=== PATIENT | male | born 1970 | race Caucasian/White ===

== ENCOUNTER 2022-08-29 15:44 | Emergency (ER) | payer OTHER, SELFPAY ==
--- NOTE | ~2022-08-29 | CT_ITS ---
EXAMINATION: CT head/brain wo IV con CLINICAL INFORMATION: Reason for Exam facial numbness, weakness, asymmetry COMPARISON: None. TECHNIQUE: Contiguous axial imaging was performed from the skull base to vertex without intravenous contrast. Sagittal and coronal reformatted images were obtained. This CT examination was performed using dose optimization techniques as appropriate, variously including the following: * Automated exposure control * Adjustment of mA and/or kV according to patient size (this includes techniques or standardized protocols for targeted exams where dose is matched to indication/reason for exam; i.e. extremities or head) Use of iterative reconstruction technique DLP: 709 mGy-cm FINDINGS: No acute osseous or soft tissue abnormality. The mastoid air cells and visualized portions of the paranasal sinuses are well aerated. There is no evidence of acute intracranial hemorrhage or territorial infarction. No abnormal mass effect or midline shift is seen. Justin to white matter differentiation is well preserved. No extra-axial fluid collections are identified. Cavum septum pellucidum et vergae. No hydrocephalus. No significant volume loss. There is no abnormal attenuation within the brain parenchyma. CT/CT head/brain wo IV con IMPRESSION: No acute intracranial abnormality including hemorrhage, mass effect, hydrocephalus, or acute territorial edematous infarction.
[2022-08-29 15:48] VITALS: BP 145/77; PULSE 90; RESP 20; TEMP 37.1; O2SAT 96; BMI 36.1
--- NOTE | 2022-08-29 15:54 | ECG_ITS ---
Test Reason : NUMBNESS Blood Pressure : / mmHG Vent. Rate : 087 BPM Atrial Rate : 087 BPM P-R Int : 148 ms QRS Dur : 082 ms QT Int : 340 ms P-R-T Axes : 056 033 019 degrees QTc Int : 409 ms Normal sinus rhythm ST & T wave abnormality, consider inferior ischemia Abnormal ECG No previous ECGs available Referred By: Generic ED Physician Electronically Signed By:JEROD DUBON
[2022-08-29 16:12] LABS: MANUAL DIFF FLAG NO
[2022-08-29 16:15] LABS: Basophils Percent Auto 0.4 % (0-2); Eosinophils Absolute Auto 0.1 X10*3/uL (0.0-0.4); Eosinophils Percent Auto 0.5 % (0-4); Imm Gran Abs Auto 0.02 X10*3/uL (0.00-0.03); Imm Gran Pct Auto 0.2 % (0.0-0.4); Lymphocytes Absolute Auto 3.2 X10*3/uL (1.2-4.9); Lymphocytes Percent Auto 31.7 % (20-40); Mean Corpuscular HGB Conc 37.5 g/dl (31.0-36.0); Mean Corpuscular Hemoglobin 29.4 pg (27.0-33.0); Mean Corpuscular Volume 78.3 fL (80.0-98.0); Mean Platelet Volume 10.5 fL (9.4-12.4); Monocytes Absolute Auto 0.7 X10*3/uL (0.1-1.2); Monocytes Percent Auto 6.9 % (2-11); Neutrophils Absolute Auto 6.2 x10*3/uL (2.0-8.3); Neutrophils Percent Auto 60.3 % (45-73); Platelet Count 263 X10*3/uL (160-400); Red Blood Count 5.11 X10*6/uL (4.60-5.80); Red Cell Distribution Width 12.9 % (11.0-16.0); White Blood Count 10.2 X10*3/uL (4.8-10.8)
[2022-08-29 16:28] LABS: Anion Gap 15 (12-20); Blood Urea Nitrogen 10 mg/dL (9-16); Calcium 10.2 mg/dL (8.4-10.2); Carbon Dioxide 29 mmol/L (22-29); Chloride 96 mmol/L (96-108); Creatinine Clr Calc Pharmacy 92.3; Estimated Glomerular Filt Rate > 60; Glucose Random 161 mg/dL (60-115); Sodium 137 mmol/L (135-145)
[2022-08-29 16:30] LABS: COVID-19 Test Negative (Negative); IDNOW Serial# 9DD0AD1C
[2022-08-29 16:36] LABS: Troponin-I High Sensitivity < 3.5 ng/L (<3.5-35.0)
[2022-08-29 20:46] VITALS: BP 131/78; PULSE 79; RESP 17; TEMP 36.7; O2SAT 98
[2022-08-29 23:06] VITALS: BP 137/92; PULSE 69; RESP 16; TEMP 36.8; O2SAT 97
--- NOTE | 2022-08-30 00:07 | ED_ITS ---
HPI - General Adult General Chief complaint: General Medical Stated complaint: facial drooping (mouth), ear pain Time Seen by Provider: 08/29/22 23:19 Source: patient Mode of arrival: ambulatory Limitations: no limitations History of Present Illness HPI narrative: Patient presents to the emergency department for evaluation of left facial drooping. Patient reports that he has been experiencing left ear pain over the past 2 days. Today upon awakening at 09:00 he noticed drooping to the left side of his smile and numbness to the lips. Denies any fevers, chills, dizziness, lightheadedness, headaches, vision changes, neck pain, neck stiffness, chest pain, shortness of breath, difficulty breathing, numbness or tingling of the extremities, nausea, vomiting, abdominal, weakness. Denies any past history of herpes simplex virus, no Lyme disease, tick bites. He does report that he has been experiencing palpitations for about a month, he has had a Holter monitor on for the past 2 weeks to assess for any arrhythmias. Related Data Previous Rx's Medication Instructions Recorded prednisone 20 mg tablet 60 mg PO DAILY 7 days #21 tabs 08/30/22 valacyclovir 1 gram tablet 1,000 mg PO Q8H 7 days #21 tabs 08/30/22 Allergies Allergy/AdvReac Type Severity Reaction Status Date / Time No Known Allergies Allergy Verified 08/30/22 00:04 [facility] Social History Social History Advance Directives: No Advance Directives Information Provided: Yes Physical Exam ED Vital Signs: Vital Signs - 24 hr 08/29/22 15:48 08/29/22 20:46 08/29/22 23:06 Temperature 98.7 F 98.1 F 98.3 F Pulse Rate 90 79 69 Respiratory Rate 20 17 16 Blood Pressure 145/77 H 131/78 137/92 H Pulse Oximetry 96 98 97 Oxygen Delivery Method Room Air Room Air Room Air BMI result Body Mass Index 36.1 Appearance: Alert.?Oriented to person, place and time. No acute distress.?Normal affect. Eyes: Pupils equal, round and reactive to light.? ENT: Pharynx normal.??TM normal bilaterally. Ear canal clear bilaterally. Normal external ears. Neck: Normal inspection.? Neck supple.? No palpable tenderness or stiffness. ? CVS: Heart sounds normal. Normal heart rate and rhythm.? Pulses normal.?? Respiratory: No respiratory distress.? Lung sounds clear to auscultation bilaterally?? Abdomen: Soft and non-tender. Normoactive bowel sounds. ? Skin: Skin warm and dry.? Normal skin color.? Extremities: No lower extremity edema.? No calf ttp? Neuro: Moves all extremities spontaneously. Sensation intact bilaterally. Left- sided facial paralysis, tongue midline, uvula midline. No focal neurological deficit. Ambulates with normal steady gait. NIH Stroke Scale Time: 00:47 Level of Consciousness: Alert Level of Consciousness Questions: Answers both questions correctly Level of Consciousness Commands: Performs both tasks correctly Best Gaze: Normal Visual: No visual loss Facial Palsy: Complete paralysis Motor Arm (Right): No drift Motor Arm (Left): No drift Motor Leg (Right): No drift Motor Leg (Left): No drift Limb Ataxia: Absent Sensory: Normal Best Language: No aphasia Dysarthia: Normal Extinction and Inattention: No abnormality Score: 3 Course Course Course Narrative: Patient is a 51-year-old male with a past medical history of hypertension, hyperlipidemia, and insomnia. Presenting to emergency department for evaluation of facial weakness after 2 days of ear pain. Patient is overall well-appearing. Has NIH stroke scale of 3 for facial paralysis, otherwise no further neurological deficits upon examination. No abnormal findings upon your examination. Not consistent with Kim Kraft syndrome. 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 ED Attending Dr. 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 Reevaluation(s) Reevaluation #1: CBC is overall unremarkable. BMP is overall unremarkable, he does have a mild hypokalemia of 3.0, will replace orally with 40 mEq. Troponin <3.5, nonspecific ST abnormality in the inferior and lateral leads, no prior EKG available review. Head CT is unremarkable for any acute intracranial abnormality. Discussed these findings with patient. Advised outpatient follow-up with primary care provider within 3 days, recheck potassium levels. Patient discharged home with a prescription for prednisone and valacyclovir. At this time patient has complete closure of the eye, discussed that if he finds that he is unable to completely close the eye he should purchase artificial tears from the pharmacy to help keep the eye lubricated. Reviewed worrisome signs and symptoms to return back to the emergency department for. All questions were answered, patient was discharged home in stable condition. Time: 00:52 Medical Decision Making Medical Records Medical records reviewed: Yes I reviewed the patient's medical records. Lab Data Lab results reviewed: Yes I reviewed the patient's lab results. Result diagrams: 08/29/22 16:07 08/29/22 16:07 Labs: Lab Results 08/29/22 08/29/22 08/29/22 Range/Units 16:07 16:07 16:07 WBC 10.2 (4.8-10.8) X10*3/uL RBC 5.11 (4.60-5.80) X10*6/uL Hgb 15.0 (14.0-18.0) g/dl Hct 40.0 L (42.0-52.0) % MCV 78.3 L (80.0-98.0) fL MCH 29.4 (27.0-33.0) pg MCHC 37.5 H (31.0-36.0) g/dl RDW 12.9 (11.0-16.0) % Plt Count 263 (160-400) X10*3/uL MPV 10.5 (9.4-12.4) fL Immature Gran % (Auto) 0.2 (0.0-0.4) % Neut % (Auto) 60.3 (45-73) % Lymph % (Auto) 31.7 (20-40) % [place] % (Auto) 6.9 (2-11) % Eos % (Auto) 0.5 (0-4) % Baso % (Auto) 0.4 (0-2) % Lymph # (Auto) 3.2 (1.2-4.9) X10*3/uL [place] # (Auto) 0.7 (0.1-1.2) X10*3/uL Eos # (Auto) 0.1 (0.0-0.4) X10*3/uL Baso # (Auto) 0.0 (0.0-0.2) X10*3/uL Abs Immat Gran (auto) 0.02 (0.00-0.03) X10*3/uL Absolute Neuts (auto) 6.2 (2.0-8.3) x10*3/uL Absolute Nucleated RBC 0.000 (0.0-0.012) X10*3/uL Nucleated RBC % (auto) 0.0 (0.0-0.2) /100WBC Sodium 137 (135-145) mmol/L Potassium 3.0 L (3.3-5.1) mmol/L Chloride 96 (96-108) mmol/L Carbon Dioxide 29 (22-29) mmol/L Anion Gap 15 (12-20) BUN 10 (9-16) mg/dL Creatinine 1.15 (0.5-1.4) mg/dL Estim Creat Clear Calc 92.3 Estimated GFR > 60 Random Glucose 161 H (60-115) mg/dL Calcium 10.2 (8.4-10.2) mg/dL Troponin I High Sens < 3.5 (<3.5-35.0) ng/L COVID-19 (CARA) (Negative) COVID-19 Clin Com 08/29/22 Range/Units 16:07 WBC (4.8-10.8) X10*3/uL RBC (4.60-5.80) X10*6/uL Hgb (14.0-18.0) g/dl Hct (42.0-52.0) % MCV (80.0-98.0) fL MCH (27.0-33.0) pg MCHC (31.0-36.0) g/dl RDW (11.0-16.0) % Plt Count (160-400) X10*3/uL MPV (9.4-12.4) fL Immature Gran % (Auto) (0.0-0.4) % Neut % (Auto) (45-73) % Lymph % (Auto) (20-40) % [place] % (Auto) (2-11) % Eos % (Auto) (0-4) % Baso % (Auto) (0-2) % Lymph # (Auto) (1.2-4.9) X10*3/uL [place] # (Auto) (0.1-1.2) X10*3/uL Eos # (Auto) (0.0-0.4) X10*3/uL Baso # (Auto) (0.0-0.2) X10*3/uL Abs Immat Gran (auto) (0.00-0.03) X10*3/uL Absolute Neuts (auto) (2.0-8.3) x10*3/uL Absolute Nucleated RBC (0.0-0.012) X10*3/uL Nucleated RBC % (auto) (0.0-0.2) /100WBC Sodium (135-145) mmol/L Potassium (3.3-5.1) mmol/L Chloride (96-108) mmol/L Carbon Dioxide (22-29) mmol/L Anion Gap (12-20) BUN (9-16) mg/dL Creatinine (0.5-1.4) mg/dL Estim Creat Clear Calc Estimated GFR Random Glucose (60-115) mg/dL Calcium (8.4-10.2) mg/dL Troponin I High Sens (<3.5-35.0) ng/L COVID-19 (CARA) Negative (Negative) COVID-19 Clin Com See Note Imaging Data CT scan - head: Radiologist's impression: CT/CT head/brain wo IV con IMPRESSION: ? No acute intracranial abnormality including hemorrhage, mass effect, hydrocephalus, or acute territorial edematous infarction. ECG Data Attestation: I personally reviewed and interpreted this ECG as follows: Prior ECG tracings: not available for review Interpretation: Rate: Normal sinus rhythm Rhythm:? Normal P waves.? Normal BELLA.?? Normal QRS complex.?? ST T wave :??Nonspecific ST abnormality in the inferior and lateral leads. No ST elevation. qTC: 409 The study has been interpreted contemporaneously by me. Discharge Plan Discharge Clinical Impression: Trevizo's palsy Patient Disposition: Home, Self-Care Instructions: Trevizo Palsy (ED) Additional Instructions: This CT scan of your head was normal. As we discussed, your symptoms seem most consistent with Trevizo's palsy, which is a problem related to the facial nerve. As mentioned this is commonly associated with viral infections such as herpes virus or Lyme disease, although it can also happen spontaneously. You have been started on a prescription for prednisone, this is a steroid, it should be taken daily with a meal as it can cause stomach upset. You have also been given a prescription for valacyclovir, this an antiviral, it is taken 3 times daily, and you should be sure to drink plenty of water while taking this medication as it can cause you to develop headaches. As mentioned, your potassium level was slightly low, we gave you a replacement orally while you were in the emergency department. You will need to follow-up with your primary care provider to assure that this has normalized. Please contact your primary care provider and arrange for a follow-up visit within 3 days. Return to the emergency department with any new or worsening symptoms or concerns. Prescriptions: New prednisone 20 mg tablet 60 mg PO DAILY 7 Days Qty: 21 0RF valacyclovir 1 gram tablet 1,000 mg PO Q8H 7 Days Qty: 21 0RF Print Language: [place]
[2022-08-30] MEDS: Potassium Chloride ER 20 MEQ TAB.ER.PRT 40 MEQ PO (01:32)
[2022-09-04 21:07] LABS: Lyme Abs Screen <0.90 index
== END 2022-08-30 01:37 | disposition home or self-care (01) ==
PROVIDERS: Nurse Practitioner Family; Emergency Provider Emergency Medicine Emergency Medical Services; PCP Internal Medicine
DX: G51.0 Bell's palsy (principal); H92.02 Otalgia, left ear; Z20.822 Contact with and (suspected) exposure to COVID-19; Z79.899 Other long term (current) drug therapy
CPT/HCPCS: 36415; 70450; 80048; 84484; 85025; 86617; 86618; 87635; 93005; 99283; 99284